=== PATIENT | male | born 1985 | race Caucasian/White ===

== ENCOUNTER 2017-09-27 19:27 | Emergency (ER) | payer BC ==
[~2017-09-27] VITALS: Ht 157.5 cm; Wt 50.8 kg
[~2017-09-27 19:27] MED LIST: MOTRIN600 MG PO; NOHOMEMEDS; NORCO 5/3251 TABLET PO; OXYCODONE HCL5 MG PO; PREDNISONE20 MG PO; TRAMADOL HCL50 MG PO
[2017-09-27] MEDS ORDERED: NAPROSYN500 MG PO (21:27)
[2017-09-27] MEDS ORDERED: ULTRAM50 MG PO (21:27)
[2017-09-27 22:07] VITALS: BP 120/69
== END 2017-09-27 22:08 | disposition home or self-care (01) ==
LOC: EME 19:27
DX: M25.512 Pain in left shoulder (principal); F17.200 Nicotine dependence, unspecified, uncomplicated; Z91.040 Latex allergy status; Z88.6 Allergy status to analgesic agent
CPT/HCPCS: 73030; 99281; 99284